=== PATIENT | male | born 1945 | race Caucasian/White ===

== ENCOUNTER 2019-05-31 09:03 | Inpatient (IN) ==
[~2019-05-31 09:03] MED LIST: CLORAZEPATE 3.75 MG TABLET PO PRN; DEXTROSE 50% 25 GM/50 ML VIAL IV PRN; GLUCAGON 1 MG VIAL IM PRN; ZOLPIDEM 5 MG TABLET PO PRN
[2019-05-31 10:00] LABS: Basophils # 0.1 10*3/uL (0.0-0.2); Eosinophils # 0.3 10*3/uL (0.0-0.87); Eosinophils % 4.6 % (0.00-10.9); Hematocrit 43.2 VOL% (42.0-52.0); Hemoglobin 14.8 GM/DL (14.0-18.0); Immature Granulocytes % 0.3 %; Immature Granulocytes Absolute 0.02 #; Lymphocytes # 1.7 10*3/uL (1.4-4.0); Lymphocytes % 23.9 % (21.2-54.2); Mean Corpuscular HGB Conc 34.3 GM/DL (32-36); Mean Corpuscular Volume 95.6 FL (87-102); Mean Platelet Volume 9.3 FL (9.6-12.0); Monocytes % 12.3 % (1.7-12.7); Neutrophils % 57.9 % (38.7-73.9); Platelet Count 215 T/CUMM (130-400); Red Blood Count 4.52 MC/CUMM (3.8-5.5); Red Cell Distribution Width 13.2 % (9.3-17.3); White Blood Count 7.2 T/CUMM (4-12)
[2019-05-31 10:45] LABS: Bilirubin,Total 0.7 MG/DL (0.2-1.0); Calcium 9.3 MG/DL (8.5-10.1); Osmolality,Calculated 283.5 MOS/KG (273-304); Total Protein 7.5 G/DL (6.4-8.3)
[2019-05-31] MEDS ORDERED: SODIUM CHLORIDE 0.9% 1,000 ML IV SCH (11:30)
[2019-05-31] MEDS: ASPIRIN CHEW 81 MG TABLET PO SCH (11:37)
[2019-05-31] MEDS: amLODIPine 5 MG TABLET PO SCH (11:37)
[2019-05-31] MEDS: NEBIVOLOL 10 MG TABLET PO SCH (11:37)
[2019-05-31] MEDS: hydroCHLOROthiazide 12.5 MG CAPSULE PO SCH (11:37)
[2019-05-31] MEDS: SIMVASTATIN 40 MG TABLET PO SCH (11:38)
[2019-05-31] MEDS: PANTOPRAZOLE 40 MG TABLET PO SCH (11:38)
[2019-05-31] MEDS: CHLORHEXIDINE 0.12% ORAL RINSE 60 ML BOTTLE SWISH/SPIT SCH ×2 (11:40→22:04)
[2019-05-31 13:32] LABS: ABG Base Excess -0.2 MMOL/L (-2.5-2.5); ABG HCO3 24.2 MMOL/L (20-26); ABG PH 7.441 (7.35-7.45); ABG PO2 73.4 MM HG (80-95); ABG TCO2 19.9 MMOL/L (23-27)
[2019-05-31] MEDS: CHLORHEXIDINE 4% SOLN 118 ML BOTTLE TOP SCH ×2 (15:39→22:06)
[2019-06-01] MEDS ORDERED: PAPAVERINE 60 MG/2 ML VIAL ONE (04:25)
[2019-06-01] MEDS ORDERED: VANCOMYCIN 1,000 MG VIAL ONE (04:25)
[2019-06-01] MEDS: CHLORHEXIDINE 4% SOLN 118 ML BOTTLE TOP SCH (04:30)
[2019-06-01] MEDS ORDERED: SODIUM CHLORIDE 0.9% 1,000 ML IV SCH (05:00)
[2019-06-01] MEDS ORDERED: CEFUROXIME INJ 1,500 MG in SYRINGE 1 EACH IV ONE (05:00)
[2019-06-01] MEDS ORDERED: DIAZEPAM 5 MG TABLET PO ONE (05:08)
[2019-06-01] MEDS ORDERED: HEPARIN/NACL 0.9% 2 UNITS/ML 500 ML IV ONE (05:20)
[2019-06-01] MEDS ORDERED: SUFentanil 250 MCG/5 ML AMP ONE (05:20)
[2019-06-01] MEDS ORDERED: MIDAZOLAM 10 MG/2 ML VIAL ONE (05:20)
[2019-06-01] MEDS ORDERED: AMINOCAPROIC ACID 5,000 MG/20 ML VIAL ONE (05:21)
[2019-06-01] MEDS: hydroCHLOROthiazide 12.5 MG CAPSULE PO SCH (05:27)
[2019-06-01] MEDS: PANTOPRAZOLE 40 MG TABLET PO SCH (05:27)
[2019-06-01] MEDS: NEBIVOLOL 10 MG TABLET PO SCH (05:27)
[2019-06-01] MEDS ORDERED: LORazepam 1 MG TABLET PO ONE (05:38)
[2019-06-01 07:43] LABS: ABG Base Excess -3.3 MMOL/L (-2.5-2.5); ABG HCO3 21.2 MMOL/L (20-26); ABG Oxygen Saturation 99.3 % (95-100); ABG PCO2 36.6 MM HG (35-48); ABG PH 7.381 (7.35-7.45); ABG PO2 397.9 MM HG (80-95); ABG TCO2 22.3 MMOL/L (23-27); Glucose Heart Surgery 132 MG/DL (74-106); Hemoglobin Heart Surgery 14.5 G/DL (14.0-18.0); Ionized Calcium Arterial 1.15 MMOL/L (1.21-1.46); PCO2 Patient Temp Arterial 36.6 MMHG; PH Patient Temp Arterial 7.381; PO2 Patient Temp Arterial 397.9 MM HG; Patient Temperature 37 CELCIUS; Potassium Heart/CVR 3.5 MMOL/L (3.5-5.1); Sodium Heart/CVR 138 MMOL/L (135-145)
[2019-06-01 07:58] LABS: Apearance,Urine CLEAR (Clear); Bilirubin,Urine Negative (Negative); Blood, Urine Negative (Negative); Glucose,Urine (UA) >=500 mg/dL (Negative); Ketones,Urine 5 mg/dL (Negative); Nitrite,Urine Negative (Negative); Protein,Urine Negative; RBC,Urine <1 /HPF (0-4); Squamous Epithelial Cell,Urine Occasional /HPF (0-10); Urine Color Yellow (Yellow); Urine Specific Gravity 1.024 (1.001-1.035); Urine Urobilinogen < 2.0 EU/DL (0.2-1.0); WBC,Urine 2 /HPF (0-6)
[2019-06-01 09:19] LABS: Hematocrit Heart Surgery 33.3 PERCENT (42-52); Hemoglobin Heart Surgery 10.8 G/DL (14.0-18.0); PCO2 Patient Temp Venous 36.8 MM HG; PH Patient Temp Venous 7.416; PO2 Patient Temp Venous 43.6 MM HG; Potassium Heart/CVR 3.9 MMOL/L (3.5-5.1); VBG Base Excess -0.5 MEQ/L (0-4); VBG HCO3 23.7 MEQ/L (24-28); VBG Oxygen Saturation 84.9 %; VBG PCO2 42.5 MMHG (41-51); VBG PH 7.373; VBG PO2 53.5 MMHG (17-40)
[2019-06-01] MEDS ORDERED: PHENYLEPHRINE DRIP 40 MG/250 ML PREMIX IV ONE (09:47)
[2019-06-01] MEDS ORDERED: NITROPRUSSIDE 50 MG/2 ML VIAL ONE (09:47)
[2019-06-01] MEDS ORDERED: CALCIUM CHLORIDE 1,000 MG/10 ML SYRINGE IV ONE (09:48)
[2019-06-01] MEDS ORDERED: SODIUM BICARBONATE 50 MEQ/50 ML VIAL IV ONE ×2 (09:48→10:19)
[2019-06-01] MEDS ORDERED: POTASSIUM CHLORIDE RIDER 100 ML IV ONE (09:48)
[2019-06-01 09:49] LABS: Hematocrit Heart Surgery 35.3 PERCENT (42-52); Hemoglobin Heart Surgery 11.5 G/DL (14.0-18.0); PCO2 Patient Temp Venous 35.9 MM HG; PH Patient Temp Venous 7.436; Potassium Heart/CVR 4.6 MMOL/L (3.5-5.1); VBG Base Excess 0.3 MEQ/L (0-4); VBG HCO3 24.3 MEQ/L (24-28); VBG PCO2 35.9 MMHG (41-51); VBG PH 7.436
[2019-06-01] MEDS ORDERED: LIDOCAINE 100 MG/5 ML SYRINGE ONE (09:50)
[2019-06-01] MEDS ORDERED: ALBUMIN 5% 12.5 GM/250 ML VIAL IV ONE ×2 (09:50→09:51)
[2019-06-01] MEDS ORDERED: EPINEPHrine 1 MG/10 ML SYRINGE ONE (09:50)
[2019-06-01] MEDS ORDERED: DEXTROSE 5% KCL 20 MEQ 20 MEQ/1,000 ML BAG IV ONE (10:18)
[2019-06-01] MEDS ORDERED: MANNITOL 100 GM/500 ML BAG IV ONE (10:18)
[2019-06-01] MEDS ORDERED: PROTAMINE SULFATE 250 MG/25 ML VIAL IV ONE (10:19)
[2019-06-01] MEDS ORDERED: HEPARIN 10,000 UNIT/10 ML VIAL ONE (10:19)
[2019-06-01] MEDS ORDERED: PROTAMINE SULFATE 50 MG/5 ML VIAL IV ONE (10:19)
[2019-06-01] MEDS ORDERED: ALBUMIN 25% 25 GM/100 ML VIAL IV ONE (10:19)
[2019-06-01] MEDS ORDERED: methylPREDNISolone SOD SUC 1,000 MG/8 ML VIAL ONE (10:19)
[2019-06-01] MEDS ORDERED: FUROSEMIDE 20 MG/2 ML VIAL ONE (10:19)
[2019-06-01] MEDS ORDERED: MAGNESIUM SULFATE 5 GM/10 ML VIAL IV ONE (10:19)
[2019-06-01 10:32] LABS: ABG Base Excess -1.3 MMOL/L (-2.5-2.5); ABG HCO3 23.3 MMOL/L (20-26); ABG Oxygen Saturation 99.9 % (95-100); ABG PCO2 38.5 MM HG (35-48); ABG TCO2 20.8 MMOL/L (23-27); Glucose Heart Surgery 222 MG/DL (74-106); Hematocrit Heart Surgery 35.6 PERCENT (42-52); Hemoglobin Heart Surgery 11.5 G/DL (14.0-18.0); Ionized Calcium Arterial 1.22 MMOL/L (1.21-1.46); PCO2 Patient Temp Arterial 38.5 MMHG; Patient Temperature 37 CELCIUS; Potassium Heart/CVR 3.9 MMOL/L (3.5-5.1); Sodium Heart/CVR 137 MMOL/L (135-145)
[2019-06-01] MEDS ORDERED: THROMBIN TOPICAL (RECOMBINANT) 5,000 UNIT VIAL TOP ONE (10:33)
[2019-06-01] MEDS ORDERED: VECURONIUM 10 MG VIAL IV ONE (12:03)
[2019-06-01] MEDS ORDERED: PHENYLEPHRINE DRIP 20 MG/250 ML PREMIX IV ONE (12:03)
[2019-06-01] MEDS ORDERED: CALCIUM CHLORIDE 1,000 MG/10 ML VIAL IV ONE (12:03)
[2019-06-01] MEDS ORDERED: SEVOFLURANE 1 UNIT/15 MINUTE INH ONE (12:03)
[2019-06-01] MEDS ORDERED: LACTATED RINGERS 1,000 ML IV ONE (12:03)
[2019-06-01] MEDS ORDERED: SODIUM CHLORIDE 0.9% 1,000 ML IV ONE (12:03)
[2019-06-01] MEDS ORDERED: ETOMIDATE 40 MG/20 ML VIAL IV ONE (12:03)
[2019-06-01] MEDS ORDERED: DEXTROSE 50% 25 GM/50 ML VIAL IV PRN ×2 (12:05)
[2019-06-01] MEDS ORDERED: VECURONIUM 10 MG VIAL IV PRN ×2 (12:05)
[2019-06-01] MEDS ORDERED: CALCIUM CHLORIDE 1,000 MG/10 ML SYRINGE IV PRN (12:05)
[2019-06-01] MEDS ORDERED: INSULIN REGULAR DRIP 100 ML IV SCH (12:05)
[2019-06-01] MEDS ORDERED: MAGNESIUM SULF RIDER 4 GM in PREMIX 1 EACH IV PRN (12:05)
[2019-06-01] MEDS ORDERED: ACETAMINOPHEN 650 MG SUPP RECTAL PRN (12:05)
[2019-06-01] MEDS ORDERED: MIDAZOLAM 2 MG/2 ML VIAL IV PRN (12:05)
[2019-06-01] MEDS ORDERED: ONDANSETRON 4 MG/2 ML VIAL IV PRN (12:05)
[2019-06-01] MEDS ORDERED: MORPHINE 10 MG/1 ML VIAL IV PRN (12:05)
[2019-06-01] MEDS ORDERED: PHENYLEPHRINE DRIP 40 MG/250 ML PREMIX IV PRN (12:05)
[2019-06-01] MEDS ORDERED: MAGNESIUM SULF RIDER 2 GM in PREMIX 1 EACH IV PRN (12:05)
[2019-06-01] MEDS ORDERED: INSULIN REGULAR 100 UNIT/ML IV PRN (12:05)
[2019-06-01] MEDS ORDERED: SODIUM CHLORIDE 0.45% 1,000 ML IV SCH ×2 (12:05)
[2019-06-01] MEDS ORDERED: MIDAZOLAM 10 MG/2 ML VIAL IV PRN (12:05)
[2019-06-01] MEDS ORDERED: INSULIN REGULAR 100 UNIT/ML IV ONE (12:05)
[2019-06-01] MEDS ORDERED: MORPHINE 4 MG/1 ML VIAL IV PRN (12:05)
[2019-06-01] MEDS ORDERED: NITROPRUSSIDE 100 MG in DEXTROSE 5% 250 ML IV PRN (12:05)
[2019-06-01] MEDS ORDERED: LACTATED RINGERS 250 ML IV PRN (12:05)
[2019-06-01 12:22] LABS: ABG Base Excess -1.9 MMOL/L (-2.5-2.5); ABG HCO3 22.9 MMOL/L (20-26); ABG Oxygen Saturation 99.5 % (95-100); ABG PCO2 45.4 MM HG (35-48); ABG PH 7.338 (7.35-7.45); ABG TCO2 20.6 MMOL/L (23-27); Glucose Heart Surgery 188 MG/DL (74-106); Potassium Heart/CVR 3.4 MMOL/L (3.5-5.1)
[2019-06-01 12:24] LABS: Basophils % 0.3 % (0.0-0.8); Eosinophils # 0.1 10*3/uL (0.0-0.87); Eosinophils % 0.6 % (0.00-10.9); Hematocrit 37.1 VOL% (42.0-52.0); Hemoglobin 12.7 GM/DL (14.0-18.0); Immature Granulocytes % 0.7 %; Immature Granulocytes Absolute 0.11 #; Lymphocytes # 0.9 10*3/uL (1.4-4.0); Lymphocytes % 5.5 % (21.2-54.2); Mean Corpuscular HGB Conc 34.2 GM/DL (32-36); Mean Corpuscular Volume 96.4 FL (87-102); Mean Platelet Volume 9.3 FL (9.6-12.0); Monocytes % 5.3 % (1.7-12.7); Neutrophils % 87.6 % (38.7-73.9); Platelet Count 230 T/CUMM (130-400); Red Blood Count 3.85 MC/CUMM (3.8-5.5); Red Cell Distribution Width 13.4 % (9.3-17.3); White Blood Count 15.5 T/CUMM (4-12)
[2019-06-01 12:36] LABS: PT Patient Result 10.9 SECS (9.6-12.2)
[2019-06-01 12:42] LABS: Albumin 3.9 G/DL (3.4-5.0); Bilirubin,Total 1.4 MG/DL (0.2-1.0); Osmolality,Calculated 287.1 MOS/KG (273-304); Total Protein 7.1 G/DL (6.4-8.3)
[2019-06-01 12:44] LABS: CKMB % 5.3 %
[2019-06-01 12:50] LABS: Troponin I 5.52 NG/ML (0.00-0.045)
[2019-06-01] MEDS ORDERED: HYDROmorphone 2 MG/1 ML VIAL IV PRN (13:36)
[2019-06-01] MEDS: POTASSIUM CHLORIDE RIDER 20 MEQ in PREMIX 1 EACH IV PRN ×3 (13:52→19:21)
[2019-06-01] MEDS: KETOROLAC 30 MG/1 ML VIAL IV SCH ×2 (14:17→19:18)
[2019-06-01] MEDS: POTASSIUM CHLORIDE RIDER 10 MEQ in PREMIX 1 EACH IV PRN ×2 (14:22→19:19)
[2019-06-01 15:08] LABS: ABG Base Excess -2.7 MMOL/L (-2.5-2.5); ABG Oxygen Saturation 98.4 % (95-100); ABG PCO2 37.6 MM HG (35-48); ABG PH 7.385 (7.35-7.45); ABG PO2 156.4 MM HG (80-95); ABG TCO2 23.1 MMOL/L (23-27); Glucose Heart Surgery 144 MG/DL (74-106); Hemoglobin Heart Surgery 11.6 G/DL (14.0-18.0); Potassium Heart/CVR 3.7 MMOL/L (3.5-5.1)
[2019-06-01 16:22] LABS: ABG Base Excess -1.6 MMOL/L (-2.5-2.5); ABG HCO3 23.1 MMOL/L (20-26); ABG Oxygen Saturation 97.5 % (95-100); ABG PCO2 39.4 MM HG (35-48); ABG TCO2 20.5 MMOL/L (23-27); Glucose Heart Surgery 130 MG/DL (74-106); Hematocrit Heart Surgery 39.4 PERCENT (42-52); Hemoglobin Heart Surgery 12.8 G/DL (14.0-18.0); Potassium Heart/CVR 3.3 MMOL/L (3.5-5.1)
[2019-06-01] MEDS: ALBUMIN 5% 12.5 GM in PREMIX 1 EACH IV PRN ×2 (16:30→17:08)
[2019-06-01 18:22] LABS: ABG Base Excess -2.2 MMOL/L (-2.5-2.5); ABG HCO3 22.6 MMOL/L (20-26); ABG Oxygen Saturation 98.9 % (95-100); ABG PCO2 36.7 MM HG (35-48); ABG PH 7.392 (7.35-7.45); ABG TCO2 20.1 MMOL/L (23-27); Glucose Heart Surgery 113 MG/DL (74-106); Hematocrit Heart Surgery 33.5 PERCENT (42-52); Hemoglobin Heart Surgery 10.9 G/DL (14.0-18.0); Potassium Heart/CVR 3.1 MMOL/L (3.5-5.1)
[2019-06-01 18:29] LABS: ABG Base Excess -2.3 MMOL/L (-2.5-2.5); ABG HCO3 22.5 MMOL/L (20-26); ABG PCO2 35.1 MM HG (35-48); ABG PH 7.403 (7.35-7.45); ABG TCO2 19.7 MMOL/L (23-27); Glucose Heart Surgery 106 MG/DL (74-106); Hematocrit Heart Surgery 32.8 PERCENT (42-52); Hemoglobin Heart Surgery 10.6 G/DL (14.0-18.0)
[2019-06-01] MEDS ORDERED: CEFUROXIME INJ 1,500 MG in SYRINGE 1 EACH IV SCH (19:59)
[2019-06-01 20:20] LABS: ABG Base Excess -1.5 MMOL/L (-2.5-2.5); ABG HCO3 23.1 MMOL/L (20-26); ABG Oxygen Saturation 97.6 % (95-100); ABG PCO2 33.4 MM HG (35-48); ABG PO2 90.7 MM HG (80-95); ABG TCO2 20.1 MMOL/L (23-27); Glucose Heart Surgery 105 MG/DL (74-106); Hematocrit Heart Surgery 31.5 PERCENT (42-52); Hemoglobin Heart Surgery 10.2 G/DL (14.0-18.0); Potassium Heart/CVR 3.7 MMOL/L (3.5-5.1)
[2019-06-01] MEDS ORDERED: CHLORHEXIDINE 0.12% ORAL RINSE 60 ML BOTTLE SWISH/SPIT SCH (21:00)
[2019-06-01 22:31] LABS: CKMB % 6.8 %
[2019-06-01 22:33] LABS: Troponin I 15.4 NG/ML (0.00-0.045)
[2019-06-02] MEDS: INSULIN REGULAR 100 UNIT/ML SUBCUT SCH ×2 (00:12→03:46)
[2019-06-02] MEDS ORDERED: FUROSEMIDE 40 MG/4 ML VIAL IV ONE (00:17)
[2019-06-02] MEDS: KETOROLAC 30 MG/1 ML VIAL IV SCH ×4 (00:23→18:04)
[2019-06-02 03:33] LABS: ABG Base Excess -0.5 MMOL/L (-2.5-2.5); ABG Oxygen Saturation 96.5 % (95-100); ABG PCO2 32.9 MM HG (35-48); ABG PH 7.451 (7.35-7.45); ABG PO2 78.5 MM HG (80-95); ABG TCO2 20.8 MMOL/L (23-27); Glucose Heart Surgery 171 MG/DL (74-106); Hematocrit Heart Surgery 31.1 PERCENT (42-52); Hemoglobin Heart Surgery 10.1 G/DL (14.0-18.0); Potassium Heart/CVR 3.5 MMOL/L (3.5-5.1)
[2019-06-02 03:35] LABS: Basophils % 0.2 % (0.0-0.8); Hematocrit 28.7 VOL% (42.0-52.0); Hemoglobin 9.9 GM/DL (14.0-18.0); Immature Granulocytes % 0.6 %; Immature Granulocytes Absolute 0.07 #; Lymphocytes # 0.6 10*3/uL (1.4-4.0); Lymphocytes % 5.1 % (21.2-54.2); Mean Corpuscular HGB Conc 34.5 GM/DL (32-36); Mean Platelet Volume 9.1 FL (9.6-12.0); Monocytes % 8.2 % (1.7-12.7); Neutrophils % 85.9 % (38.7-73.9); Platelet Count 135 T/CUMM (130-400); Red Blood Count 2.99 MC/CUMM (3.8-5.5); Red Cell Distribution Width 13.4 % (9.3-17.3); White Blood Count 12.6 T/CUMM (4-12)
[2019-06-02] MEDS: POTASSIUM CHLORIDE RIDER 20 MEQ in PREMIX 1 EACH IV PRN (03:46)
[2019-06-02 03:54] LABS: CKMB % 5.7 %
[2019-06-02 04:03] LABS: Troponin I 15.3 NG/ML (0.00-0.045)
[2019-06-02] MEDS: POTASSIUM CHLORIDE RIDER 10 MEQ in PREMIX 1 EACH IV PRN (04:17)
[2019-06-02 04:27] LABS: Albumin 3.5 G/DL (3.4-5.0); Bilirubin,Direct 0.2 MG/DL (0.0-0.20); Bilirubin,Total 0.7 MG/DL (0.2-1.0); Calcium 7.9 MG/DL (8.5-10.1); Osmolality,Calculated 287.1 MOS/KG (273-304); Total Protein 5.7 G/DL (6.4-8.3)
[2019-06-02] MEDS ORDERED: GLUCAGON 1 MG VIAL IM PRN ×2 (07:10)
[2019-06-02] MEDS ORDERED: ONDANSETRON 4 MG/2 ML VIAL IV PRN (07:10)
[2019-06-02] MEDS ORDERED: MAGNESIUM HYDROXIDE SUSP 30 ML UDCUP PO PRN (07:10)
[2019-06-02] MEDS ORDERED: ACETAMINOPHEN 325 MG TABLET PO PRN (07:10)
[2019-06-02] MEDS ORDERED: ZALEPLON 5 MG CAPSULE PO PRN (07:10)
[2019-06-02] MEDS ORDERED: MAGNESIUM SULF RIDER 4 GM in PREMIX 1 EACH IV PRN (07:10)
[2019-06-02] MEDS ORDERED: NITROGLYCERIN SL 0.4 MG TABLET SL PRN (07:10)
[2019-06-02] MEDS ORDERED: DEXTROSE 50% 25 GM/50 ML VIAL IV PRN ×2 (07:10)
[2019-06-02] MEDS ORDERED: ALUMINUM/MAGNES/SIMETH MAX STR 30 ML UDCUP PO PRN (07:10)
[2019-06-02] MEDS ORDERED: MAGNESIUM SULF RIDER 2 GM in PREMIX 1 EACH IV PRN (07:10)
[2019-06-02] MEDS: NEBIVOLOL 10 MG TABLET PO SCH ×2 (07:38→08:16)
[2019-06-02] MEDS: CHLORHEXIDINE 4% SOLN 118 ML BOTTLE TOP SCH (07:38)
[2019-06-02] MEDS: ASPIRIN CHEW 81 MG TABLET PO SCH ×2 (07:38→08:16)
[2019-06-02] MEDS: CHLORHEXIDINE 0.12% ORAL RINSE 60 ML BOTTLE SWISH/SPIT SCH ×3 (07:39→20:08)
[2019-06-02] MEDS: PANTOPRAZOLE 40 MG TABLET PO SCH ×2 (07:39→08:17)
[2019-06-02] MEDS: SIMVASTATIN 40 MG TABLET PO SCH ×2 (07:39→20:08)
[2019-06-02] MEDS: amLODIPine 5 MG TABLET PO SCH ×2 (07:39→08:17)
[2019-06-02] MEDS: hydroCHLOROthiazide 12.5 MG CAPSULE PO SCH ×2 (07:39→08:17)
[2019-06-02] MEDS: FERROUS SULFATE 325 MG TABLET PO SCH (08:16)
[2019-06-02] MEDS: DOCUSATE SODIUM 100 MG CAPSULE PO SCH (08:16)
[2019-06-02] MEDS: SODIUM CHLOR 0.45% KCL 20 MEQ 20 MEQ/1,000 ML BAG IV SCH (08:32)
[2019-06-02] MEDS ORDERED: ASPIRIN EC 325 MG TABLET PO SCH (09:00)
[2019-06-02] MEDS ORDERED: PANTOPRAZOLE 40 MG TABLET PO SCH (09:00)
[2019-06-02] MEDS: oxyCODONE/ACETAMINOPHEN 5-325 MG TABLET PO PRN ×2 (09:20→18:04)
[2019-06-02] MEDS: SITAGLIPTIN METFORMIN PO SCH ×2 (10:11→21:41)
[2019-06-02] MEDS: VENLAFAXINE PO SCH (10:12)
[2019-06-03] MEDS: KETOROLAC 30 MG/1 ML VIAL IV SCH ×5 (00:35→23:02)
[2019-06-03] MEDS ORDERED: FUROSEMIDE 40 MG/4 ML VIAL IV ONE (06:00)
[2019-06-03 06:20] LABS: Basophils % 0.4 % (0.0-0.8); Eosinophils # 0.1 10*3/uL (0.0-0.87); Eosinophils % 0.5 % (0.00-10.9); Hematocrit 27.5 VOL% (42.0-52.0); Hemoglobin 9.1 GM/DL (14.0-18.0); Immature Granulocytes % 0.5 %; Immature Granulocytes Absolute 0.05 #; Lymphocytes # 1.2 10*3/uL (1.4-4.0); Mean Corpuscular HGB Conc 33.1 GM/DL (32-36); Mean Corpuscular Volume 100.4 FL (87-102); Mean Platelet Volume 10.4 FL (9.6-12.0); Neutrophils % 73.6 % (38.7-73.9); Platelet Count 126 T/CUMM (130-400); Red Blood Count 2.74 MC/CUMM (3.8-5.5); Red Cell Distribution Width 13.9 % (9.3-17.3); White Blood Count 9.3 T/CUMM (4-12)
[2019-06-03 06:42] LABS: Alanine Aminotransferase 29 U/L (16-61); Albumin 3.1 G/DL (3.4-5.0); Alkaline Phosphatase 42 U/L (45-117); Aspartate Amino Transferase 38 U/L (0-37); Bilirubin,Indirect 0.7 MG/DL (0.0-1.0); Blood Urea Nitrogen 23 MG/DL (7-18); Calcium 8.2 MG/DL (8.5-10.1); Glucose 142 MG/DL (74-106); Osmolality,Calculated 288.1 MOS/KG (273-304); Total Protein 5.9 G/DL (6.4-8.3)
[2019-06-03] MEDS: POTASSIUM CHLORIDE 20 MEQ TABLET PO PRN ×2 (08:07→09:42)
[2019-06-03] MEDS: amLODIPine 5 MG TABLET PO SCH (09:41)
[2019-06-03] MEDS: hydroCHLOROthiazide 12.5 MG CAPSULE PO SCH (09:42)
[2019-06-03] MEDS: NEBIVOLOL 10 MG TABLET PO SCH (09:42)
[2019-06-03] MEDS: FERROUS SULFATE 325 MG TABLET PO SCH (09:43)
[2019-06-03] MEDS: ASPIRIN CHEW 81 MG TABLET PO SCH (09:43)
[2019-06-03] MEDS: DOCUSATE SODIUM 100 MG CAPSULE PO SCH (09:43)
[2019-06-03] MEDS: PANTOPRAZOLE 40 MG TABLET PO SCH (09:43)
[2019-06-03] MEDS: CHLORHEXIDINE 0.12% ORAL RINSE 60 ML BOTTLE SWISH/SPIT SCH ×2 (09:45→20:06)
[2019-06-03] MEDS: SODIUM CHLOR 0.45% KCL 20 MEQ 20 MEQ/1,000 ML BAG IV SCH (09:46)
[2019-06-03] MEDS: VENLAFAXINE PO SCH (09:49)
[2019-06-03] MEDS: SITAGLIPTIN METFORMIN PO SCH ×2 (09:50→20:04)
[2019-06-03] MEDS: SIMVASTATIN 40 MG TABLET PO SCH ×2 (19:46→20:07)
[2019-06-04 05:17] LABS: Basophils % 0.3 % (0.0-0.8); Eosinophils # 0.3 10*3/uL (0.0-0.87); Eosinophils % 3.9 % (0.00-10.9); Hematocrit 28.4 VOL% (42.0-52.0); Hemoglobin 9.3 GM/DL (14.0-18.0); Immature Granulocytes % 0.6 %; Immature Granulocytes Absolute 0.05 #; Lymphocytes # 1.1 10*3/uL (1.4-4.0); Lymphocytes % 13.1 % (21.2-54.2); Mean Corpuscular HGB Conc 32.7 GM/DL (32-36); Mean Corpuscular Volume 100.4 FL (87-102); Mean Platelet Volume 10.3 FL (9.6-12.0); Monocytes % 10.8 % (1.7-12.7); Neutrophils % 71.3 % (38.7-73.9); Platelet Count 137 T/CUMM (130-400); Red Blood Count 2.83 MC/CUMM (3.8-5.5); Red Cell Distribution Width 13.5 % (9.3-17.3); White Blood Count 8.7 T/CUMM (4-12)
[2019-06-04] MEDS: KETOROLAC 30 MG/1 ML VIAL IV SCH ×3 (05:52→17:36)
[2019-06-04 06:14] LABS: Alanine Aminotransferase 26 U/L (16-61); Albumin 2.9 G/DL (3.4-5.0); Alkaline Phosphatase 42 U/L (45-117); Aspartate Amino Transferase 27 U/L (0-37); Bilirubin,Indirect 0.9 MG/DL (0.0-1.0); Blood Urea Nitrogen 23 MG/DL (7-18); Calcium 8.5 MG/DL (8.5-10.1); Glucose 129 MG/DL (74-106); Osmolality,Calculated 288.1 MOS/KG (273-304); Total Protein 5.9 G/DL (6.4-8.3)
[2019-06-04] MEDS: ASPIRIN CHEW 81 MG TABLET PO SCH (08:23)
[2019-06-04] MEDS: amLODIPine 5 MG TABLET PO SCH (08:23)
[2019-06-04] MEDS: NEBIVOLOL 10 MG TABLET PO SCH (08:23)
[2019-06-04] MEDS: hydroCHLOROthiazide 12.5 MG CAPSULE PO SCH (08:23)
[2019-06-04] MEDS: FERROUS SULFATE 325 MG TABLET PO SCH (08:24)
[2019-06-04] MEDS: PANTOPRAZOLE 40 MG TABLET PO SCH (08:24)
[2019-06-04] MEDS: DOCUSATE SODIUM 100 MG CAPSULE PO SCH (08:24)
[2019-06-04] MEDS: VENLAFAXINE PO SCH (08:27)
[2019-06-04] MEDS: CHLORHEXIDINE 0.12% ORAL RINSE 60 ML BOTTLE SWISH/SPIT SCH ×2 (08:27→20:01)
[2019-06-04] MEDS: SITAGLIPTIN METFORMIN PO SCH ×3 (08:28→20:01)
[2019-06-04] MEDS: SIMVASTATIN 40 MG TABLET PO SCH ×2 (19:49→20:00)
[2019-06-05] MEDS: KETOROLAC 30 MG/1 ML VIAL IV SCH ×2 (00:20→05:22)
[2019-06-05 05:56] LABS: Basophils % 0.5 % (0.0-0.8); Eosinophils # 0.7 10*3/uL (0.0-0.87); Eosinophils % 11.4 % (0.00-10.9); Hematocrit 28.4 VOL% (42.0-52.0); Hemoglobin 9.1 GM/DL (14.0-18.0); Immature Granulocytes % 0.5 %; Immature Granulocytes Absolute 0.03 #; Lymphocytes # 1.2 10*3/uL (1.4-4.0); Mean Corpuscular Volume 102.5 FL (87-102); Mean Platelet Volume 9.9 FL (9.6-12.0); Monocytes % 9.8 % (1.7-12.7); Neutrophils % 59.8 % (38.7-73.9); Platelet Count 145 T/CUMM (130-400); Red Blood Count 2.77 MC/CUMM (3.8-5.5); Red Cell Distribution Width 13.4 % (9.3-17.3); White Blood Count 6.5 T/CUMM (4-12)
[2019-06-05 06:22] LABS: Albumin 2.8 G/DL (3.4-5.0); Bilirubin,Total 0.6 MG/DL (0.2-1.0); Calcium 8.4 MG/DL (8.5-10.1); Osmolality,Calculated 286.1 MOS/KG (273-304)
[2019-06-05 06:28] LABS: Band Neutrophils 1 % (0-10); Eosinophils 11 % (0-10); Lymphocytes 12 % (20-55); Segmented Neutrophils 63 % (50-85); Total Cells Counted 100
[2019-06-05 06:29] LABS: Microcytosis Slight; Ovalocytes Slight
[2019-06-05 06:30] LABS: Atypical Lymphocytes Few; Platelet Estimate Adequate
[2019-06-05] MEDS: PANTOPRAZOLE 40 MG TABLET PO SCH (08:30)
[2019-06-05] MEDS: NEBIVOLOL 10 MG TABLET PO SCH (08:30)
[2019-06-05] MEDS: ASPIRIN CHEW 81 MG TABLET PO SCH (08:30)
[2019-06-05] MEDS: FERROUS SULFATE 325 MG TABLET PO SCH (08:30)
[2019-06-05] MEDS: DOCUSATE SODIUM 100 MG CAPSULE PO SCH (08:30)
[2019-06-05] MEDS: hydroCHLOROthiazide 12.5 MG CAPSULE PO SCH (08:30)
[2019-06-05] MEDS: SITAGLIPTIN METFORMIN PO SCH ×2 (08:31→20:03)
[2019-06-05] MEDS: VENLAFAXINE PO SCH (08:31)
[2019-06-05] MEDS: CHLORHEXIDINE 0.12% ORAL RINSE 60 ML BOTTLE SWISH/SPIT SCH ×2 (08:31→20:05)
[2019-06-05] MEDS: amLODIPine 5 MG TABLET PO SCH (08:38)
[2019-06-05] MEDS: SIMVASTATIN 40 MG TABLET PO SCH (20:03)
[2019-06-06 06:47] LABS: Basophils % 0.5 % (0.0-0.8); Eosinophils # 0.7 10*3/uL (0.0-0.87); Eosinophils % 10.2 % (0.00-10.9); Hematocrit 28.3 VOL% (42.0-52.0); Hemoglobin 9.3 GM/DL (14.0-18.0); Immature Granulocytes % 0.6 %; Immature Granulocytes Absolute 0.04 #; Lymphocytes # 1.2 10*3/uL (1.4-4.0); Lymphocytes % 17.9 % (21.2-54.2); Mean Corpuscular HGB Conc 32.9 GM/DL (32-36); Mean Corpuscular Volume 99.3 FL (87-102); Mean Platelet Volume 10.4 FL (9.6-12.0); Monocytes % 12.8 % (1.7-12.7); Platelet Count 187 T/CUMM (130-400); Red Blood Count 2.85 MC/CUMM (3.8-5.5); Red Cell Distribution Width 13.3 % (9.3-17.3); White Blood Count 6.6 T/CUMM (4-12)
[2019-06-06 06:53] LABS: Alanine Aminotransferase 23 U/L (16-61); Albumin 2.8 G/DL (3.4-5.0); Alkaline Phosphatase 50 U/L (45-117); Aspartate Amino Transferase 17 U/L (0-37); Bilirubin,Indirect 1.2 MG/DL (0.0-1.0); Blood Urea Nitrogen 16 MG/DL (7-18); Calcium 8.6 MG/DL (8.5-10.1); Glucose 131 MG/DL (74-106); Osmolality,Calculated 283.3 MOS/KG (273-304); Total Protein 6.1 G/DL (6.4-8.3)
[2019-06-06 08:24] VITALS: BP 131/63
[2019-06-06] MEDS: NEBIVOLOL 10 MG TABLET PO SCH (08:59)
[2019-06-06] MEDS: DOCUSATE SODIUM 100 MG CAPSULE PO SCH (09:00)
[2019-06-06] MEDS: FERROUS SULFATE 325 MG TABLET PO SCH (09:00)
[2019-06-06] MEDS: ASPIRIN CHEW 81 MG TABLET PO SCH (09:00)
[2019-06-06] MEDS: hydroCHLOROthiazide 12.5 MG CAPSULE PO SCH (09:00)
[2019-06-06] MEDS: PANTOPRAZOLE 40 MG TABLET PO SCH (09:00)
[2019-06-06] MEDS: amLODIPine 5 MG TABLET PO SCH (09:00)
[2019-06-06] MEDS: CHLORHEXIDINE 0.12% ORAL RINSE 60 ML BOTTLE SWISH/SPIT SCH (09:01)
[2019-06-06] MEDS: SITAGLIPTIN METFORMIN PO SCH (09:01)
[2019-06-06] MEDS: VENLAFAXINE PO SCH (09:02)
== END 2019-06-06 11:35 | disposition home health service (06) | DRG 236 ==
LOC: N.ADMINP 09:03 → N.CVR 06-01 09:44 → N.TELES 06-02 08:38